=== PATIENT | female | born 1950 | race Caucasian/White ===

== ENCOUNTER 2023-12-29 05:41 | Observation (INO) ==
[~2023-12-29 05:41] MED LIST: Lidocaine 1% w EPI 1:100,000 MDV 20 ML VIAL ONE; NS 0.45% 1000 ml BAG 1,000 ML IV SCH; Naloxone 0.4 mg VIAL 0.4 mg/ml 1 ml VIAL IV PRN; Ondansetron 4 mg VIAL 2 MG/ML 2 ml VIAL IV PRN; Thrombin 5,000 UNITS 1 APPLIC KIT - topical use - TOPICAL ONE; ceFAZolin VIAL VIAL ONE
[2023-12-29] MEDS ORDERED: ceFAZolin 2 GM PREMIX 2 GM/50 ML BAG ONE (06:05)
[2023-12-29] MEDS ORDERED: Chlorhexidine MOUTHWASH 0.12% 15 ML UDC ONE (06:05)
[2023-12-29] MEDS: Lactated Ringers 1000 ml BAG 1,000 ML IV SCH ×2 (06:39→14:34)
[2023-12-29] MEDS ORDERED: Rocuronium 50 mg VIAL 10 mg/ml 5 ml VIAL (50 mg) ONE (07:14)
[2023-12-29] MEDS ORDERED: Midazolam 2 mg/2 ml VIAL 1 mg/ml 2 ml VIAL (2 mg) ONE (07:16)
[2023-12-29] MEDS ORDERED: fentaNYL 100 mcg/2 ml 50 MCG/ML VIAL ONE ×2 (07:16→10:05)
[2023-12-29 07:26] LABS: Rapid COVID-19 Molecular Undetected (Undetected)
[2023-12-29] MEDS ORDERED: Calcium Carb (TUMS) 500 mg CHEW TAB PO PRN (08:47)
[2023-12-29] MEDS ORDERED: Senna TAB 8.6 mg TAB PO PRN (08:47)
[2023-12-29] MEDS ORDERED: Morphine 2 MG/ML SYRINGE IV PRN (08:47)
[2023-12-29] MEDS ORDERED: Benzocaine/Menthol LOZ MT PRN (08:47)
[2023-12-29] MEDS ORDERED: Magnesium Hydroxide LIQ 30 ML UDC PO PRN (08:47)
[2023-12-29] MEDS ORDERED: Phenol 1.4% Throat Spray BTL MT PRN (08:47)
[2023-12-29] MEDS ORDERED: Dextran 70/Hypromellose Tears Eye Drops 15 ml BTL (for Artificials Tears) BOTH EYES PRN (08:47)
[2023-12-29] MEDS ORDERED: Fluticasone NASAL SPRAY 50MCG 16 gm SPRAY BTL INTRANASAL PRN (08:53)
[2023-12-29] MEDS ORDERED: Cyclosporine 0.05% OPHTH (NF) 0.4 ML VIAL BOTH EYES PRN (08:53)
[2023-12-29] MEDS: fentaNYL 100 mcg/2 ml 50 MCG/ML VIAL IV PRN (10:07)
[2023-12-29] MEDS: Acetaminophen IV 1 GM/100ML 1,000 MG/100 ML BAG IV ONE (12:23)
[2023-12-29] MEDS: Buffered Lidocaine 1% SYRIN 1 ml INTRADERM ONE (12:23)
[2023-12-29] MEDS: Ondansetron 4 mg VIAL 2 MG/ML 2 ml VIAL IV PRN (19:07)
[2023-12-29] MEDS: CMCS:Cyclosporine 0.05% OPHTH (NF) 0.4 ML VIAL BOTH EYES SCH (21:42)
[2023-12-30 11:36] VITALS: BP 112/55
== END 2023-12-30 11:45 | disposition home or self-care (01) ==
LOC: OR 05:41 → SSU 05:41
PROVIDERS: ADMIT Neurological Surgery; ATTEND Neurological Surgery